=== PATIENT | female | born 1975 | race Hispanic/Latino ===

== ENCOUNTER 2017-08-25 16:47 | Emergency (ER) | payer BC ==
[2017-08-25 16:47] VITALS: BMI 19.5
[2017-08-25 16:58] VITALS: O2SAT 96
--- NOTE | 2017-08-25 17:39 | C.PDOC ---
History Of Present Illness 42 y/o female presents to emergency department requesting alcohol detox. Patient reports last drink around was around 3:00 PM today. Patient reports feeling shaky, with c/o nausea and some epigastric abdominal burning. Otherwise , patient denies any other physical complaints, and has no suicidal/homicidal ideations. Time Seen by Provider: 08/25/17 17:28 Chief Complaint (Nursing): Substance Abuse History Per: Patient History/Exam Limitations: no limitations Onset/Duration Of Symptoms: Hrs Current Symptoms Are (Timing): Still Present Modifying Factor(s): Alcohol Severity: Moderate Associated Symptoms: denies: Suicidal Thoughts, Suicidal Plan Past Medical History Reviewed: Historical Data, Nursing Documentation, Vital Signs Vital Signs: Last Vital Signs Temp 98.5 F 08/25/17 18:09 Pulse 80 08/25/17 18:09 Resp 20 08/25/17 18:09 BP 117/67 08/25/17 18:09 Pulse Ox 96 08/25/17 18:12 - Medical History PMH: Bipolar Disorder Surgical History: Tonsillectomy - [facility] Procedures CLOSURE SKIN & SUBCUTANEOUS NEC (01/29/14) DIPHTHERIA TOXOID ADMIN (01/29/14) TETANUS TOXOID ADMINIST (01/29/14) Family History: States: Diabetes, Hypertension - Social History Hx Alcohol Use: Yes Hx Substance Use: No - Immunization History Hx Tetanus Toxoid Vaccination: No Hx Influenza Vaccination: No Hx Pneumococcal Vaccination: No Review Of Systems Except As Marked, All Systems Reviewed And Found Negative. Constitutional: Negative for: Fever, Chills Cardiovascular: Negative for: Chest Pain, Palpitations Respiratory: Negative for: Cough, Shortness of Breath, Wheezing Gastrointestinal: Positive for: Nausea. Negative for: Vomiting Musculoskeletal: Negative for: Neck Pain Skin: Negative for: Rash Neurological: Negative for: Weakness, Numbness, Dizziness Physical Exam - Physical Exam Appears: Well, Non-toxic, No Acute Distress Skin: Normal Color, Warm, Dry Head: Normacephalic Eye(s): bilateral: Normal Inspection Oral Mucosa: Moist Neck: Supple Cardiovascular: Rhythm Regular Respiratory: Normal Breath Sounds, No Rales, No Rhonchi, No Wheezing Gastrointestinal/Abdominal: Bowel Sounds, Soft, Tenderness (mild, epigastric TTP , (-) Barrios's), No Guarding, No Rebound Back: Normal Inspection Extremity: Normal ROM, No Pedal Edema, No Swelling Neurological/Psych: Oriented x3, Other (no tremors) ED Course And Treatment O2 Sat by Pulse Oximetry: 96 (RA) Pulse Ox Interpretation: Normal Progress Note: Patient given PO Librium, Pepcid and Zofran. Discussed patient with crisis counselor, no detox beds currently available. Patient instructed to call for prescreening, or return at later date to try for detox bed. Reevaluation Time: 18:10 Reassessment Condition: Improved (Patient reassessed, symptoms have improved and patient states she feels better. Rxs given for pepcid and zofran.) Disposition Counseled Patient/Family Regarding: Studies Performed, Diagnosis, Need For Followup, Rx Given - Disposition Referrals: [facility] [Outside] Disposition: HOME/ ROUTINE Disposition Time: 18:10 Condition: STABLE Additional Instructions: FOLLOW UP WITH YOUR DOCTOR IN 1-2 DAYS CALL CRISIS FOR DETOX PRESCREENING RETURN TO ER TO TRY AGAIN FOR DETOX AT LATER DATE Prescriptions: Famotidine [Pepcid] 20 mg PO BID PRN #15 tab PRN Reason: abdominal Ondansetron [Zofran Odt] 4 mg PO Q8 PRN #15 odt PRN Reason: Nausea/Vomiting Instructions: Alcohol Dependence (ED) Forms: [facility] (Faroese) Print Language: YORUBA - Clinical Impression Clinical Impression: Alcohol dependence - Scribe Statement The provider has reviewed the documentation as recorded by the Lucyibtruong Monge All medical record entries made by the Lucyibtruong were at my direction and personally dictated by me. I have reviewed the chart and agree that the record accurately reflects my personal performance of the history, physical exam, medical decision making, and the department course for this patient. I have also personally directed, reviewed, and agree with the discharge instructions and disposition.
[2017-08-25 18:12] VITALS: BP 117/67; PULSE 80; RESP 20; TEMP 98.5
== END 2017-08-25 18:12 | disposition home or self-care (01) ==
LOC: C.ER 16:47
DX: F10.20 Alcohol dependence, uncomplicated (principal); Y90.9 Presence of alcohol in blood, level not specified